=== PATIENT | female | born 1950 | race Hispanic/Latino ===

== ENCOUNTER → 2023-03-31 | Outpatient (CLI) | payer OTHER ==
[2023-03-31 15:39] LABS: T4 (THYROXINE) 10.1 ug/dL (4.7-13.3); THYROID STIMULATING HORMONE 1.61 uIU/mL (0.36-3.74)
== END | disposition home or self-care (01) ==
LOC: LAB 12:40
PROVIDERS: ATTEND Physician Assistant
DX: I10 Essential (primary) hypertension (principal)
CPT/HCPCS: 36415; 84436; 84443

== ENCOUNTER → 2023-09-25 | Outpatient (CLI) | payer OTHER | END | disposition home or self-care (01) | LOC: SHCH 08:13 | PROVIDERS: ATTEND Internal Medicine Cardiovascular Disease | DX: I42.0 Dilated cardiomyopathy (principal) | CPT/HCPCS: 93306 ==

== ENCOUNTER → 2023-09-29 | Outpatient (CLI) | payer OTHER ==
[2023-09-29] MEDS: REGADENOSON 0.4 MG/5 ML PF SYG IVP ONE (12:31)
== END | disposition home or self-care (01) ==
LOC: SHCH 08:04
PROVIDERS: ATTEND Internal Medicine Cardiovascular Disease
DX: I10 Essential (primary) hypertension (principal); R06.00 Dyspnea, unspecified; R94.39 Abnormal result of other cardiovascular function study; I48.91 Unspecified atrial fibrillation; Z79.899 Other long term (current) drug therapy
CPT/HCPCS: 78452; 96374; 93017; J2785; A9500 ×2

== ENCOUNTER → 2023-11-13 | Outpatient (CLI) | payer OTHER ==
[~2023-11-13] MED LIST: IOHEXOL 350 MG/ML 100ML INFUS..BTL IV ONE
== END | disposition home or self-care (01) ==
LOC: RAH 08:03
PROVIDERS: ATTEND Internal Medicine Cardiovascular Disease
DX: I48.0 Paroxysmal atrial fibrillation (principal)
CPT/HCPCS: Q9967